=== PATIENT | female | born 1960 | race Caucasian/White ===

== ENCOUNTER 2019-02-24 08:30 | Emergency (ER) | payer OTHER ==
[~2019-02-24] VITALS: Ht 152.4 cm; Wt 53.5 kg
[~2019-02-24 08:30] MED LIST: ORPH100T2 PO
[2019-02-24] MEDS ORDERED: diphenhydrAMINE 50 mg/ml inj IV ONE (09:45)
[2019-02-24] MEDS ORDERED: normal saline 1000ML IV soln IVB ONE (09:45)
[2019-02-24] MEDS ORDERED: proCHLORperazine 10 MG/2 ml inj IV ONE (09:45)
[2019-02-24] MEDS ORDERED: proparacaine 0.5% ophthalmic drops 15ml EACHEYE ONE (10:00)
--- NOTE | 2019-02-24 10:39 | NUR ---
assisted provider at bedside with visual checks, with padilla lamp and pressure check in bilat eyes, provider stated normal exam
[2019-02-24 10:43] LABS: BASOPHILS # (AUTO) 0.1 X10'3 (0-0.2); BASOPHILS % (AUTO) 1.1 % (0-1); EOSINOPHILS # (AUTO) 0.1 X10'3 (0-0.9); EOSINOPHILS % (AUTO) 0.6 % (0-6); HEMATOCRIT 41.4 % (35.0-45.0); HEMOGLOBIN 14.4 g/dl (12.0-16.0); MEAN CORPUSCULAR HEMOGLOBIN 35.4 PG (27.0-31.0); MEAN CORPUSCULAR HGB CONC 34.9 g/dL (33.0-36.5); MEAN CORPUSCULAR VOLUME 101.5 FL (78-98); MONOCYTES # (AUTO) 0.8 X10'3 (0-0.9); NEUTROPHILS # (AUTO) 6.9 X10'3 (1.8-7.7); NEUTROPHILS % (AUTO) 70.3 % (42-75); PLATELET COUNT 382 X10'3 (140-440); RED BLOOD COUNT 4.07 X10'6 (4.20-5.60); RED CELL DISTRIBUTION WIDTH 12.6 % (11.5-14.5); WHITE BLOOD COUNT 9.8 X10'3 (4.5-11.0)
[2019-02-24 11:06] LABS: ALANINE AMINOTRANSFERASE 42 U/L (12-78); ALBUMIN 4.2 G/DL (3.4-5.0); ALBUMIN/GLOBULIN RATIO 1.1 (1.1-1.5); ALKALINE PHOSPHATASE 65 IU/L (46-116); ANION GAP 11 (8-16); ASPARTATE AMINO TRANSFERASE 38 U/L (10-37); BILIRUBIN,TOTAL 0.5 MG/DL (0.1-1.0); BLOOD UREA NITROGEN 8 MG/DL (7-18); BUN/CREATININE RATIO 11.4 (6.6-38.0); CALCIUM 9.3 MG/DL (8.5-10.1); CHLORIDE 103 MMOL/L (99-107); GLUCOSE 107 MG/DL (70-104); SODIUM 139 MMOL/L (135-145); TOTAL CARBON DIOXIDE 25.4 MMOL/L (24-32); eGFR 87 ML/MIN
[2019-02-24 11:07] LABS: POTASSIUM 3.5 MMOL/L (3.5-5.1)
[2019-02-24 12:05] VITALS: BP 107/68
== END 2019-02-24 12:09 | disposition home or self-care (01) ==
LOC: ER 08:31
DX: S00.83XA Contusion of other part of head, initial encounter (principal); R51 Headache; E78.00 Pure hypercholesterolemia, unspecified; Z88.1 Allergy status to other antibiotic agents; Z88.8 Allergy status to other drugs, medicaments and biological substances; X58.XXXA Exposure to other specified factors, initial encounter; Y93.89 Activity, other specified; Y92.89 Other specified places as the place of occurrence of the external cause; Y99.8 Other external cause status
CPT/HCPCS: 36415; 70450; 80053; 85025; 85610; 85651; 93005; 96374; 96375; 99284; J0780; J1200; J7030

== ENCOUNTER 2020-04-19 11:59 | Emergency (ER) | payer BC ==
[~2020-04-19] VITALS: Ht 152.4 cm; Wt 52.3 kg
[2020-04-19 12:02] VITALS: BP 143/70
[2020-04-19] MEDS ORDERED: DOXY100C76 PO (13:26)
[2020-04-19] MEDS ORDERED: OXYC5CAP19 PO (13:32)
== END 2020-04-19 13:49 | disposition home or self-care (01) ==
LOC: ER 12:00
DX: L02.818 Cutaneous abscess of other sites (principal); E78.00 Pure hypercholesterolemia, unspecified; Z88.1 Allergy status to other antibiotic agents; Z79.899 Other long term (current) drug therapy
CPT/HCPCS: 99283

== ENCOUNTER 2020-04-24 09:51 | Emergency (ER) | payer BC ==
[~2020-04-24] VITALS: Ht 152.4 cm; Wt 52.3 kg
[~2020-04-24 09:51] MED LIST changes: +DOXY100C76 PO; +LIDOcaine 1% w/epiNEPHrine 1:200,000 30ml vial ONE; +OXYC5CAP19 PO
[2020-04-24 09:53] VITALS: BP 154/82
[2020-04-24] MEDS ORDERED: HYDR-3965 PO (10:35)
[2020-04-24] MEDS ORDERED: DOXY100C76 PO (10:35)
[2020-04-24] MEDS ORDERED: mupirocin 2% ointment 22GM TP ONE (10:35)
== END 2020-04-24 10:46 | disposition home or self-care (01) ==
LOC: ER 09:52
DX: L72.3 Sebaceous cyst (principal); N76.4 Abscess of vulva; E78.00 Pure hypercholesterolemia, unspecified; Z88.1 Allergy status to other antibiotic agents; Z79.2 Long term (current) use of antibiotics; Z79.899 Other long term (current) drug therapy; N94.89 Other specified conditions associated with female genital organs and menstrual cycle
CPT/HCPCS: 56405; 99284